=== PATIENT | male | born 1985 | race Caucasian/White ===

== ENCOUNTER 2018-05-17 06:35 | Outpatient (CLI) | payer BC ==
--- NOTE | 2018-05-17 08:29 | ULT ---
RIGHT UPPER QUADRANT ULTRASOUND: Date: 05/17/18 INDICATION: Elevated LFTs. FINDINGS: There is diffuse fatty infiltration of the liver and enlargement of the right hepatic lobe measuring up to 7.4 cm. No focal hepatic lesion is evident. Visualized gallbladder is unremarkable. Visualized pancreas is unremarkable. No sonographic [place]'s sign is reported. Common bile duct measures 4.3 mm. Right kidney measures 12.4 cm in length without evidence of hydronephrosis or focal renal lesion. IMPRESSION: Fatty liver. POS: BH
== END 2018-05-17 06:36 | disposition home or self-care (01) ==
LOC: BICULT 06:35
PROVIDERS: ATTEND Family Medicine
DX: R74.8 Abnormal levels of other serum enzymes (principal); K76.0 Fatty (change of) liver, not elsewhere classified
CPT/HCPCS: 76705